=== PATIENT | male | born 1985 | race Two or more races ===

== ENCOUNTER 2019-02-10 09:20 | Emergency (ER) | payer OTHER ==
[~2019-02-10] VITALS: Ht 167.6 cm; Wt 99.8 kg
== END 2019-02-10 15:23 | disposition home or self-care (01) ==
LOC: ER 09:20
DX: K52.9 Noninfective gastroenteritis and colitis, unspecified (principal); E86.0 Dehydration; R10.84 Generalized abdominal pain